=== PATIENT | male | born 1975 | race Caucasian/White ===

== ENCOUNTER 2023-09-04 13:11 | Emergency (ER) | payer BC, SELFPAY ==
[2023-09-04 13:13] VITALS: BP 160/111
--- NOTE | 2023-09-04 14:37 | ED.GENMED ---
History of Present Illness
General
Chief Complaint: Dental Problem
Time Seen by Provider: 09/04/23 14:37
Travel History
Have you had any contact with someone who has COVID-19?: No
Do you have any symptoms of coronavirus? Fever > 100 degrees, chills, cough, shortness of breath, sore throat, loss of taste or smell, muscle aches, or headache?: No
History of Present Illness
History of Present Illness:
HPI: The patient had wisdom tooth removal 10 days ago he has had 1 day of antibiotics and 5 days of steroids after the procedure. Patient presents with left-sided facial pain and swelling that started 2 days ago while eating a hard a cracking
sensation. The pain and swelling became so severe he came in here for further evaluation.
EXAM:
GENERAL: Well appearing in no distress
HEENT: There is moderate soft tissue swelling over the angle of the mandible, there is no significant tenderness to palpation of the teeth, there is no definite palpable abscess on exam intraorally or extraorally
NEUROLOGIC: Excellent strength all extremities, no coordination deficits
PSYCHIATRIC: Appropriate mental status, normal insight and judgement
EXTREMITIES: Nontender, no edema, moves all extremities equally
SKIN: No rash, no lesions
TIME OF INITIAL ENCOUNTER: 2:40 PM
NUMBER AND COMPLEXITY OF PROBLEMS ADDRESSED AT THE ENCOUNTER
� Chronic conditions affecting care: High blood pressure, GERD
� Acute Exacerbation and/or Progression of Chronic Illness: This is an acute problem
� Differential Diagnosis includes: Facial infection, dental abscess, doubt TMJ, tooth fracture less likely (reportedly not seen on [facility] and has no tenderness to palpation on physical examination currently)
AMOUNT AND/OR COMPLEXITY OF DATA TO BE REVIEWED AND ANALYZED
� I performed an independent evaluation of and my interpretation is:
EKG:
CT: I personally viewed CT imaging and agree with radiologist interpretation of cellulitis
X-rays:
Laboratory Studies: White count is normal at 9.6, hemoglobin normal, chemistries unremarkable including normal renal function
Other:
� Review of other/old records: The patient was seen here in 2013 with low back pain
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
� Prescriptions/Medications Considered but not given:
� Further testing considered but not performed:
RISK OF COMPLICATIONS AND/OR MORBIDITY OR MORTALITY OF PATIENT MANAGEMENT
� Social determinants of health affecting care: This is an acute problem
� Discussion with other providers:
� Escalation of care including admission/observation vs risk of discharge considered: CT imaging does not show any large abscess, questionable small labs noted. Will resume steroids and clindamycin as outpatient�he feels
comfortable with going home. The patient feels comfortable with following up with his oral surgeon by calling him tomorrow. Considered admission to the hospital however the patient feels very comfortable with going home.
Past History
Past History
ED Past Medical History: HTN
ED Past Surgical History: None
Social History
Tobacco: Non-smoker
Phy Exam
Physical Exam
Physical Exam:
See HPI
Course
Orders/Labs/Results
Orders:
Orders
09/04/23 14:44
0.9% Sodium Chloride 1000 ml [Nss] 1,000 ml IV BOLUS
Dexamethasone Sod Phosphate [Decadron] 10 mg IV NOW STA
Ketorolac [Toradol] 15 mg IV NOW STA
09/04/23 14:[address] [CT Neck With Iv Contrast] Urgent
Comment:
Reason For Exam: wisdom tooth ext 10d ago, crack sens/swell 2d ago
09/04/23 15:02
Basic Metabolic Panel Urgent
Complete Blood Count/With Diff Urgent
09/04/23 15:31
Clindamycin 900 mg/50 ml [Cleocin] 900 mg in 50 ml IV NOW
Abnormal Lab Results
09/04/23
15:02
RBC 4.45 L 10^6/uL
(4.70-6.10)
Hct 38.3 L %
(39.0-52.0)
Absolute Neuts (auto) 7.3 H 10^3/uL
(1.4-6.5)
Absolute Lymphs (auto) 1.1 L 10^3/uL
(1.2-3.4)
Absolute Monos (auto) 1.0 H 10^3/uL
(0.1-0.6)
Neutrophils % 76.2 H %
(42.2-75.2)
Lymphocytes % 11.5 L %
(20.5-51.1)
Monocytes % 10.8 H %
(1.7-9.3)
Creatinine 0.6 L mg/dL
(0.7-1.3)
Glucose 138 H mg/dl
(70-99)
09/04/23 15:02
09/04/23 15:02
Vital Signs
Initial and Last Documented VS:
Initial Vital Signs
Temp Pulse Resp BP
98.9 F 105 20 160/111
09/04/23 13:13 09/04/23 13:13 09/04/23 13:13 09/04/23 13:13
Last Documented Vital Signs
Temp Pulse Resp BP Pulse Ox
98.2 F 78 20 156/96 96
09/04/23 18:05 09/04/23 18:05 09/04/23 13:13 09/04/23 18:05 09/04/23 18:05
*Critical Care Note
Total Time (30-74mins, 75-104mins- exclusive of procedures): Not Applicable
ED Attending Note
-
Portions of this chart may have been created with voice recognition software.� Occasional wrong word or��sound alike� substitutions may have occurred due to the inherent limitations of voice recognition software.
Discharge Plan
Departure
Patient Disposition: Home (Routine Discharge)
Date of Disposition: 09/04/23
Time of Disposition: 19:07
Patient with high blood pressure during this ER visit?: Yes
Discharge Problem:
Cellulitis, neck
Instructions: BLOOD PRESSURE
Prescriptions:
New
clindamycin HCl 300 mg capsule
300 mg PO TID Qty: 21 0RF
methylprednisolone [Methylpred DP] 4 mg tablets,dose pack
See Rx Instructions .ROUTE .COMPLEX Qty: 21 0RF
Rx Instructions:
orally per package directions
No Action
losartan 50 MG tablet
50 mg PO DAILY
ibuprofen [Wal-Profen] 200 MG tablet
3 tablets PO Q6HPRN PRN (Reason: back pain)
omeprazole [Prilosec] 20 MG capsule,delayed release(DR/EC)
20 mg PO DAILY
oxycodone-acetaminophen 5 MG/325 MG tablet
1 tab PO Q4HPRN PRN (Reason: Pain) Qty: 15 0RF
diazepam 5 MG tablet
5 mg PO TIDPRN PRN (Reason: Muscle spasm) Qty: 15 0RF
Referrals:
Rich Marshall, [Family Provider] -
Activity Restrictions/Additional Instructions:
I recommend that you follow-up with your oral surgeon. You can return here if worse. We are placing you back on steroid medication so I recommend limited use of NSAIDs.
Interventions
Interventions:
*Risk Screen - Suicide Last Done: 09/04/23 15:08
*General Assessment Last Done: 09/04/23 16:32
*Neglect/Abuse Screening Last Done: 09/04/23 16:32
ED- Fall Risk Assessment Last Done: 09/04/23 16:32
*ED COVID-19 Vaccine History Last Done: 09/04/23 13:13
Discharge Date and Time
Print Language: CENTRAL AFRICAN
[2023-09-04 14:56] VITALS: BMI 27.2
[2023-09-04] MEDS: DECADRON 10 MG IV (15:04)
[2023-09-04] MEDS: NSS 1000 IV (15:06)
[2023-09-04] MEDS: TORADOL 15 MG IV (15:06)
[2023-09-04 15:17] LABS: % Basophils 0.4 % (0-2); % Eosinophils 0.7 % (0-6); % Immature Granulocytes 0.4 % (0-0.5); % Lymphocytes 11.5 % (20.5-51.1); % Monocytes 10.8 % (1.7-9.3); % Neutrophils 76.2 % (42.2-75.2); Absolute Eosinophils 0.1 10^3/uL (0-0.7); Absolute Lymphocytes 1.1 10^3/uL (1.2-3.4); Absolute Neutrophils 7.3 10^3/uL (1.4-6.5); Hematocrit 38.3 % (39.0-52.0); Hemoglobin 13.5 g/dL (13.0-18.0); Mean Corp Hgb Conc. 35.2 g/dL (33.0-37.0); Mean Corpuscular Hgb 30.3 pg (27.0-31.0); Mean Corpuscular Volume 86.1 fL (80.0-94.0); Mean Platelet Volume 9.2 fL (7.4-10.4); Nucleated Red Blood Cells % 0 % (-); Platelet Count 205 10^3/uL (130-400); Red Blood Cell Count 4.45 10^6/uL (4.70-6.10); Red Cell Dist. Width 12.3 % (11.5-14.5); White Blood Cell Count 9.6 10^3/uL (4.8-10.8)
[2023-09-04 15:38] LABS: Blood Urea Nitrogen 13 mg/dl (9-20); Calcium 9.5 mg/dl (8.4-10.2); Carbon Dioxide 25 mmol/L (22-30); Chloride 99 mmol/L (98-107); Estimated Creatinine Clearance > 125 ml/min; Glucose 138 mg/dl (70-99); Potassium 4.1 mmol/L (3.5-5.1); Sodium 135 mmol/L (135-145); eGFR > 60.00
[2023-09-04] MEDS: CLEOCIN 50 IV (15:53)
[2023-09-04 18:05] VITALS: BP 156/96
[2023-09-04 19:34] VITALS: BP 156/101
== END 2023-09-04 19:36 | disposition home or self-care (01) ==
LOC: EMR 13:11
PROVIDERS: EMERGENCY PHYSICIAN Emergency Medicine; FAMILY PHYSICIAN Family Medicine
DX: L03.221 Cellulitis of neck (principal); R51.9 Headache, unspecified; I10 Essential (primary) hypertension; Z98.890 Other specified postprocedural states; Z88.1 Allergy status to other antibiotic agents; Z88.0 Allergy status to penicillin
CPT/HCPCS: 99285; 96361; 96374; 96375 ×2; 70491; 80048; 85025; Q9967